=== PATIENT | female | born 1985 | race Caucasian/White ===

== ENCOUNTER 2016-11-02 17:25 | Emergency (ER) | payer SELFPAY ==
[2016-11-02 18:07] VITALS: BP 111/59
--- NOTE | 2016-11-02 19:15 | UC ---
Respiratory Complaint HPI - HPI Summary HPI Summary: This is an otherwise healthy 31 yo female who presents with a 3d h/o cough, chills, ST, body aches and nausea without vomiting or diarrhea. Her children have been sick with the flu recently. She denies SOB. No documented fevers. No abdominal pain. - History of Current Complaint Chief Complaint: UCGeneralIllness Stated Complaint: COUGH Hx Last Menstrual Period: CURRENT - Allergies/Home Medications Allergies/Adverse Reactions: Allergies Allergy/AdvReac Type Severity Reaction Status Date / Time Tramadol Allergy See Comment Verified 11/02/16 18:07 Home Medications: Home Medications Acetaminophen [Extra Strength Acetaminop] 500 mg PO ONCE PRN 11/02/16 [History Confirmed 11/02/16] PMH/Surg Hx/FS Hx/Imm Hx Previously Healthy: Yes Endocrine History Of: Denies: Diabetes, Thyroid Disease Cardiovascular History Of: Denies: Cardiac Disorders, Hypertension Respiratory History Of: Denies: COPD, Asthma GI/ History Of: Denies: Ulcer - Surgical History Surgical History: Yes Surgery Procedure, Year, and Place: Right Inguinal Hernia Repair, 2003, [facility]. Tubal Ligation, 2008, [facility]. , 2005 2006 2008, [facility]. appy - Family History Known Family History: Positive: Hypertension, Respiratory Disease - asthma - Social History Alcohol Use: Rare Substance Use Type: None Smoking Status (MU): Never Smoked Tobacco Review of Systems Constitutional: Chills, Fatigue Skin: Negative Eyes: Negative ENT: Sore Throat Respiratory: Shortness Of Breath, Cough Cardiovascular: Negative Gastrointestinal: Diarrhea Genitourinary: Negative Motor: Negative Neurovascular: Negative Musculoskeletal: Negative Neurological: Negative Psychological: Negative All Other Systems Reviewed And Are Negative: Yes Physical Exam Triage Information Reviewed: Yes Appearance: Ill-Appearing - mildly Vital Signs: Initial Vital Signs Temp 97.6 F 11/02/16 18:01 Pulse 65 11/02/16 18:01 Resp 16 11/02/16 18:01 BP 111/59 11/02/16 18:01 Pulse Ox 100 11/02/16 18:01 Vital Signs Reviewed: Yes ENT: Positive: TM dull. Negative: Nasal congestion, Tonsillar swelling, Tonsillar exudate Neck: Positive: Supple, Nontender, No Lymphadenopathy Respiratory: Positive: Lungs clear, Normal breath sounds. Negative: Crackles, Rhonchi, Wheezing Cardiovascular: Positive: RRR, Pulses Normal Abdomen Description: Positive: Nontender, Soft Bowel Sounds: Positive: Present Skin Exam: Normal UC Diagnostic Evaluation - Laboratory O2 Sat by Pulse Oximetry: 100 Respiratory Course/Dx - Course Course Of Treatment: Patient has a 3d h/o cough, chills, ST and body aches. Her children were recently sick with the flu. She is outside the treatment window for Tamiflu so influenza testing was not completed. Recommend symptomatic treatment - Differential Dx/Diagnosis Differential Diagnosis/HQI/PQRI: Bronchitis, Influenza, Laryngitis Provider Diagnoses: Acute viral respiratory infection - suspect influenza Discharge - Discharge Plan Condition: Stable Disposition: HOME Patient Education Materials: Influenza (ED) Forms: *Work Release Referrals: Cheri VASQUEZ,Mar [Physician Locomotive Crane Engineer] - Additional Instructions: Activity: As tolerated Instructions: 1. Use sudafed during the day for congestion relief 2. Use benadryl at night for congestion
== END 2016-11-02 19:20 | disposition home or self-care (01) ==
LOC: UCCORT 17:25
DX: J06.9 Acute upper respiratory infection, unspecified (principal); Z88.5 Allergy status to narcotic agent
CPT/HCPCS: 99211; G0463

== ENCOUNTER 2017-08-22 17:17 | Emergency (ER) | payer OTHER ==
[2017-08-22 17:33] VITALS: BP 118/65
--- NOTE | 2017-08-22 17:47 | UC ---
Back Pain HPI - HPI Summary HPI Summary: 32 YEAR OLD MALE PRESENTS WITH COMPLAINS OF BACK PAIN AFTER FALLING ON ICE. - History of Current Complaint Chief Complaint: UCBackPain Stated Complaint: TAIL BONE PAIN-SP FALL Time Seen by Provider: 08/22/17 17:46 Hx Obtained From: Patient Hx Last Menstrual Period: pt states having an ablasion and not getting a menses Onset/Duration: Sudden Onset, Lasting Hours Timing: Constant Severity Initially: Moderate Severity Currently: Moderate Pain Scale Used: 0-10 Numeric - 5 Character: Sharp Aggravating Factor(s): Movement, Lifting, Bending Alleviating Factor(s): Rest - Allergies/Home Medications Allergies/Adverse Reactions: Allergies Allergy/AdvReac Type Severity Reaction Status Date / Time Tramadol AdvReac See Comment Verified 08/22/17 17:33 Home Medications: Home Medications Ibuprofen [Ibuprofen 200] 400 mg PO PRN 08/22/17 [History] PMH/Surg Hx/FS Hx/Imm Hx Previously Healthy: Yes - Surgical History Surgical History: Yes Surgery Procedure, Year, and Place: Right Inguinal Hernia Repair, 2003, [facility]. Tubal Ligation, 2008, [facility]. , 2005 2006 2008, [facility]. appy - Family History Known Family History: Positive: Hypertension, Respiratory Disease - asthma - Social History Alcohol Use: Rare Substance Use Type: None Smoking Status (MU): Never Smoked Tobacco Review of Systems Constitutional: Negative Skin: Negative Eyes: Negative ENT: Negative Respiratory: Negative Cardiovascular: Negative Gastrointestinal: Negative Genitourinary: Negative Motor: Negative Neurovascular: Negative Musculoskeletal: Other: - LOWER BACK PAIN Neurological: Negative Psychological: Negative All Other Systems Reviewed And Are Negative: Yes Physical Exam Triage Information Reviewed: Yes Vital Signs: Initial Vital Signs Temp 36.6 C 08/22/17 17:29 Pulse 75 08/22/17 17:29 Resp 14 08/22/17 17:29 BP 118/65 08/22/17 17:29 Pulse Ox 100 08/22/17 17:29 Vital Signs Reviewed: Yes Eye Exam: Normal ENT Exam: Normal Dental Exam: Normal Neck exam: Normal Neck: Positive: 1 Respiratory Exam: Normal Cardiovascular Exam: Normal Abdominal Exam: Normal Musculoskeletal: Positive: Other: - LOWER BACK PAIN Neurological Exam: Normal Psychological Exam: Normal Skin Exam: Normal Back Pain Course/Dx - Differential Dx/Diagnosis Provider Diagnoses: COCCYX PAIN. LOWER BACK PAIN. MID BACK PAIN Discharge - Discharge Plan Condition: Stable Disposition: HOME Prescriptions: Meloxicam [Mobic] 7.5 mg PO BID #30 tab Methocarbamol TAB* [Robaxin 500 MG TAB*] 500 mg PO TID PRN #30 tab PRN Reason: Spasms - Back Patient Education Materials: Coccyx Injury (ED), Acute Low Back Pain (ED) Referrals: Reza Lane MD [Medical Doctor] - Timothy Sanchez [Physical Therapist] - Amanda Caba [Primary Care Provider] -
--- NOTE | 2017-08-22 18:49 | RAD ---
INDICATION: Pain COMPARISON: CT May 16, 2011 TECHNIQUE: 2 views of the sacrum were obtained FINDINGS: There are no acute bony findings. There is minor offset lower coccygeal segments similar to 2011 CT exam. The SI joints and symphysis are intact IMPRESSION: NO ACUTE BONY FINDINGS.
--- NOTE | 2017-08-22 18:49 | RAD ---
INDICATION: Back pain COMPARISON: None TECHNIQUE: Routine 2 view imaging was performed FINDINGS: Bones: There are no acute bony findings. There are no significant osteoarthritic findings. Alignment: There is a mild scoliotic deformity with convexity of the lumbar spine to the right and thoracolumbar junction to the left. There is no other abnormality in alignment. Disc spaces: The disc spaces are well-maintained Soft tissues: There are no soft tissue abnormalities. IMPRESSION: MILD SCOLIOTIC DEFORMITY.
== END 2017-08-22 19:02 | disposition home or self-care (01) ==
LOC: UCCORT 17:17
DX: M53.3 Sacrococcygeal disorders, not elsewhere classified (principal); M54.5 Low back pain; M54.6 Pain in thoracic spine; M41.9 Scoliosis, unspecified; Z88.5 Allergy status to narcotic agent
CPT/HCPCS: 72080; 72220; 99212; G0463

== ENCOUNTER 2019-01-03 16:09 | Emergency (ER) | payer OTHER ==
--- OUTSIDE RECORDS SUMMARY | 2019-01-03 16:37 | XMS REPORT | Continuity of Care Document ---
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 Payers Date Identification Numbers Payment Provider Subscriber Effective: 2016 Policy Number: [id number] [facility] Vickie Jaimes Group Name: [facility]# [id number] [address] PayID: [id number] [place] [address] Advance Directives Description No Information Available Problems Active Problems Provider Date Neck pain Digiovanna, Amanda, MACHINE FUR CLEANER Onset: 07/12/2018 Low back pain Digiovanna, Amanda, MACHINE FUR CLEANER Onset: 07/12/2018 Allergic rhinitis Digiovanna, Amanda, MACHINE FUR CLEANER Onset: 07/12/2018 Family History Date Family Member(s) Observation Comments General Cancer, Bone PGF General Hodgkin's Disease P uncle General Cancer, Breast PGM, diagnosed in her 60s Father Diabetes, Adult Father Hypertension First Son Asthma First Son Epilepsy First Son Allergies First Daughter Allergies Second Daughter Allergies Social History Type Date Description Comments Sex Unknown Education Highest level completed, 12th grade Occupation [employer] Mother ETOH Use Rarely consumes beer Tobacco Use Start: Unknown Patient has never smoked Recreational Drug Use Denies Drug Use Smoking Status Reviewed: 12/06/18 Patient has never smoked Allergies, Adverse Reactions, Alerts Active Allergies Reaction Severity Comments Date Tramadol GI UPSET/ RACING HEART 05/31/2016 Azithromycin Hives at time of illness could 12/06/2018 be viral Medications Active Medications SIG Qnty Indications Ordering Date Provider Flovent HFA 2 inhalation twice 12gm J45.40 [place], 12/06/2018 110mcg/Act daily rinse with MD Jazmin Aerosol mouth after. Prednisone 4 tablets by mouth 21tabs J20.9 Ron Santoro, 12/05/2018 10mg Tablets x 2 days, then 3 DO tablets x 2 days, then 2 tablets x 2 days, then 1 tablet until finished Acetaminophen 1-2 by mouth every 100tabs Digiovanna, 04/24/2018 500mg 4 hours as needed Amanda, MACHINE FUR CLEANER Tablets for pain Naproxen 1 tablet by mouth 30tabs N64.4 SantoroRon, 04/04/2018 500mg Tablets twice daily with DO food Ibuprofen take 1 tablet by 120tabs S30.0xxA Digiovanna, 09/03/2017 600mg Tablets mouth 3 times Amanda, MACHINE FUR CLEANER daily as needed with food for complaintof neck pain Omeprazole 1 by mouth every 30caps R07.89 Digiovanna, 04/27/2017 20mg day unitl 1 week Amanda, MACHINE FUR CLEANER Capsules DR after completion of prednisone, then as needed. R12 Metronidazole 1 by mouth twice a day Unknown 500mg Tablets Albuterol Sulfate HFA 2 puffs every 4 hours as J45.40 Unknown 108(90Base) mcg/Act needed Aerosol History Medications Azithromycin 2 tablets by mouth 6tabs J20.9 YvanValorieew, 12/05/2018 - 250mg on day 1 then 1 DO 12/06/2018 Tablets tablet on days 2-5 Benzonatate 1 by mouth every 8 60caps J06.9 Digiovanna, 09/17/2018 - 200mg hours as needed Amanda, MACHINE FUR CLEANER 12/05/2018 Capsules for cough, may cause drowsiness Nitrofurantoin 1 by mouth twice a 14caps R30.0 Ron Santoro, 08/14/2018 - Monohyd Macro day x 7 days DO 08/21/2018 100mg Capsules Nitrofurantoin 1 by mouth twice a 14caps N39.0 Digiovanna, 07/12/2018 - Monohyd Macro day for 7 days Amanda, MACHINE FUR CLEANER 07/19/2018 100mg Capsules Gabapentin take one capsules 30caps M54.2 Digiovanna, 05/01/2018 - 100mg by mouth at Amanda, MACHINE FUR CLEANER 07/12/2018 Capsules bedtime, may increase to 2 after 3 days if no improvement Nabumetone 1 by mouth twice a 60tabs M54.5 Digiovanna, 11/06/2017 - 750mg day Amanda, MACHINE FUR CLEANER 05/01/2018 Tablets Benzonatate 1 by mouth every 8 30caps J06.9 Digiovanna, 06/13/2017 - 200mg hours as needed Amanda, MACHINE FUR CLEANER 09/03/2017 Capsules for cough, may cause drowsiness Prednisone 2x/day by mouth 6tabs J06.9 Digiovanna, 06/13/2017 - 20mg Tablets for 3 days Amanda, MACHINE FUR CLEANER 06/16/2017 Ondansetron 1 every 8 hours as 10tabs R07.89 Digiovanna, 04/27/2017 - 4mg Tablets needed for nausea Amanda, MACHINE FUR CLEANER 05/17/2017 Dispers Naproxen Sodium 1 by mouth every 60tabs Digiovanna, 04/27/2017 - 550mg 12 hours for 2 Amanda, MACHINE FUR CLEANER 05/09/2017 Tablets weeks then as needed Ibuprofen 3-4 tabs by mouth Unknown - 200mg three times a day 09/03/2017 Capsules as needed with food or snack for pain Prednisone as directed x 12 Unknown - 10mg Tablets days 05/13/2017 Doxycycline Hyclate 1 by mouth twice a Unknown - day 12/05/2018 100mg Capsules Immunizations CPT Code Status Date Vaccine Reaction Lot # [id number] Refused 07/12/2018 Flu Vaccine NOS Pt says she does not get flu shots. CASA MEYER 07/12/18 [id number] Refused 09/03/2017 Influenza Vac, Quadrivalent, Split, 0.5mL Dosage, Im Use Vital Signs Date Vital Result Comment 12/06/2018 10:09am Body Temperature 98.7 F Weight 205.00 lb Heart Rate 78 /min BP Systolic 122 mmHg BP Diastolic 78 mmHg Respiratory Rate 18 /min Height 64.75 inches 5'4.75" 07/12/18 CASA MEYER BMI (Body Mass Index) 34.4 kg/m2 12/05/2018 1:01pm Body Temperature 99.1 F Weight 206.00 lb Heart Rate 78 /min BP Systolic 124 mmHg BP Diastolic 78 mmHg Respiratory Rate 18 /min Height 64.75 inches 5'4.75" 07/12/18 SA,THERMOMETER MAKER O2 % BldC Oximetry 99 % BMI (Body Mass Index) 34.5 kg/m2 09/17/2018 9:45am Body Temperature 98.3 F Weight 209.00 lb Heart Rate 90 /min Respiratory Rate 18 /min Height 64.75 inches 5'4.75" 07/12/18 SA,THERMOMETER MAKER O2 % BldC Oximetry 98 % BMI (Body Mass Index) 35.0 kg/m2 08/14/2018 9:51am Body Temperature 98.2 F Weight 203.00 lb Heart Rate 72 /min BP Systolic 112 mmHg BP Diastolic 70 mmHg Respiratory Rate 18 /min Height 64.75 inches 5'4.75" 07/12/18 SA,THERMOMETER MAKER BMI (Body Mass Index) 34.0 kg/m2 07/12/2018 9:57am Weight 179.25 lb Heart Rate 76 /min BP Systolic 114 mmHg BP Diastolic 70 mmHg Respiratory Rate 16 /min Height 64.75 inches 5'4.75" 07/12/18 SA,THERMOMETER MAKER BMI (Body Mass Index) 30.1 kg/m2 05/01/2018 12:56pm Weight 212.12 lb Heart Rate 84 /min BP Systolic 116 mmHg BP Diastolic 74 mmHg Respiratory Rate 16 /min Height 64.5 inches 5'4.50" BMI (Body Mass Index) 35.8 kg/m2 04/04/2018 11:35am Weight 204.00 lb Heart Rate 72 /min BP Systolic 120 mmHg BP Diastolic 70 mmHg Respiratory Rate 18 /min Height 64.5 inches 5'4.50" BMI (Body Mass Index) 34.5 kg/m2 11/06/2017 11:23am Weight 197.00 lb Heart Rate 84 /min BP Systolic 130 mmHg BP Diastolic 78 mmHg Respiratory Rate 16 /min Height 64.5 inches 5'4.50" BMI (Body Mass Index) 33.3 kg/m2 09/03/2017 11:16am Weight 198.00 lb Heart Rate 68 /min BP Systolic 114 mmHg BP Diastolic 68 mmHg Respiratory Rate 18 /min 06/13/2017 1:31pm Body Temperature 97.3 F Weight 194.00 lb Heart Rate 85 /min BP Systolic 108 mmHg BP Diastolic 64 mmHg Respiratory Rate 14 /min Height 64.5 inches 5'4.50" 05/31/16 O2 % BldC Oximetry 98 % BMI (Body Mass Index) 32.8 kg/m2 06/01/2017 10:59am Body Temperature 98.9 F Weight 196.00 lb Heart Rate 76 /min BP Systolic 108 mmHg BP Diastolic 60 mmHg Respiratory Rate 18 /min Height 64.5 inches 5'4.50" 05/31/16 BMI (Body Mass Index) 33.1 kg/m2 04/27/2017 10:03am Body Temperature 97.7 F Weight 194.00 lb Heart Rate 72 /min Respiratory Rate 18 /min Height 64.5 inches 5'4.50" 05/31/16 BMI (Body Mass Index) 32.8 kg/m2 10/30/2016 2:30pm Body Temperature 97.6 F Weight 178.00 lb Heart Rate 72 /min BP Systolic 110 mmHg BP Diastolic 70 mmHg Respiratory Rate 18 /min Height 64.5 inches 5'4.50" 05/31/16 BMI (Body Mass Index) 30.1 kg/m2 05/31/2016 1:51pm Weight 173.00 lb Heart Rate 72 /min BP Systolic 124 mmHg BP Diastolic 74 mmHg Respiratory Rate 16 /min Height 64.5 inches 5'4.50" 05/31/16 BMI (Body Mass Index) 29.2 kg/m2 Results Test Date Facility Test Result H/L Range Note Laboratory 09/22/19 [facility] Rapid Strep A Negative Negative 1, 2 test finding 19 (315)- - Antigen Laboratory 09/22/19 [facility] Throat Strep NO BETA STREPTOC 3 test finding 19 (315)- - Screen <SEE NOTE> Laboratory 08/14/19 [facility] Urine Culture Microbiology res 4 test finding 19 <SEE NOTE> Affirm 08/14/19 [facility] Trichomonas Negative Negative 19 Vaginalis Gardnerella Vaginalis Negative Negative Meggan Species Negative Negative Laboratory test 07/12/2018 [facility] Urine Culture Microbiology res 5 finding <SEE NOTE> Ua RFX Micro & 07/07/2018 [facility] Urine Color YELLOW Yellow 6 Culture II (315)- - Urine Clarity CLEAR Clear Urine Glucose - Dipstick NEGATIVE mg/dL Negative Urine Bilirubin - Dipstick NEGATIVE Negative Urine Ketone NEGATIVE mg/dL Negative Urine Specific Batchelor 1.025 N 1.010-1.030 Urine Blood NEGATIVE Negative Urine PH 6.0 Low 6.5-7.5 Urine Protein - Dipstick NEGATIVE mg/dL Negative Urine Urobilinogen - Dipstick 1.0 E.U./dL N 0.2-1.0 Urine Nitrite - Dipstick NEGATIVE Negative Urine Leuk Esterase NEGATIVE Negative Source: URINE, CLEAN CAT <SEE NOTE> 7 Urine HCG 07/07/2018 [facility] Urine HCG NEGATIVE Negative 8 (Qualitative) (315)- - (Qualitative) Source: URINE, CLEAN CAT <SEE NOTE> 9 CBS W/Automated Diff 07/07/2018 [facility] White Blood 7.2 K/uL N 3.1-10.7 (315)- - Count Red Blood Count 4.56 M/uL N 3.90-5.40 Hemoglobin 13.9 gm/dL N 11.6-15.8 Hematocrit 41.6 % N 36.0-46.1 Mean Cell Volume 91.2 fl N 80.9-99.0 Mean Corpuscular HGB 30.5 pg N 25.9-32.7 Mean Corpuscular HGB Conc 33.4 g/dL N 30.8-34.3 Platelet Count 222 K/uL N 155-360 Red Cell Distri Width SD 41.9 fl N 3-47 Red Cell Distri Width %CV 12.9 % N 11.7-14.4 Mean Platelet Volume 9.8 fL N 8.9-12.4 Neut% 67.5 % N 40.4-72.8 Lymph % 24.4 % N 20.0-42.0 Sevier % 6.3 % N 4.3-13.2 Eo% 1.5 % N 0.0-6.6 Bas% 0.3 % N 0.0-1.1 Neut# 4.83 K/uL N 1.8-7.0 Lymph # 1.75 K/uL N 1.0-4.0 Sevier # 0.45 K/uL N 0.3-0.9 Eos # 0.11 K/uL N 0.0-0.5 Baso # 0.02 K/uL N 0.0-0.1 Chlmaydia/GC/Trichomonas 07/07/2018 [facility] Chlamydia NEGATIVE Negative PCR (315)- - trachomatis, PCR Neisseria gonorrhoeae, PCR NEGATIVE Negative 10 Trichomonas vaginalis PCR NEGATIVE Negative Affirm Vaginitis 07/07/2018 [facility] Trichomonas Negative [Negative] Panel (315)- - vaginalis Gardnerella vaginalis POSITIVE High [Negative] Meggan species Negative [Negative] 11 Laboratory test 04/04/2018 [facility] Urine Culture Microbiology res 12 finding <SEE NOTE> CBC with Auto 04/04/2018 [facility] WBC 6.3 K/uL 4.1-11.0 Diff-fcmg RBC 4.89 M/uL 4.00-5.40 Hemoglobin 14.6 gm/dL 12.0-16.0 Hematocrit 43.8 % 36.0-47.0 MCV 89.7 fL 80.0-97.0 MCH 29.9 pg 27.0-32.0 MCHC 33.4 g/dL 32.0-36.0 RDW 13.0 % 11.5-14.5 PLT Count 211 K/ul 140-400 MPV 9.1 FL 7.1-10.7 Neutrophil 65.0 % 35.0-75.0 Lymphocyte 25.1 % 16.0-52.0 Monocyte 7.9 % 2.0-10.0 Eosinophil 1.0 % 0.0-5.0 Basophil 1.0 % 0.0-4.0 Abs Neutrophils 4.1 K/uL 2.1-8.0 Abs Lymphocytes 1.6 K/uL 0.8-5.5 Abs Monocytes 0.5 K/uL 0.1-1.0 Abs Eosinophils 0.1 K/uL 0.0-0.5 Abs Basophils 0.1 K/uL 0.0-0.3 Comprehensive Met Panel-FCMG 04/04/2018 [facility] Sodium 140 mmol/L 135- 146 13 Potassium 4.4 mmol/L 3.5-5.2 Chloride# 105 mmol/L 97-110 14 Carbon Dioxide 25 mmol/L 24-34 Glucose 85 mg/dL 70-105 BUN 10 mg/dL 6-26 Creatinine 0.6 mg/dL 0.5-1.4 Calcium 9.4 mg/dL 8.5-10.2 Total Protein 7.3 g/dL 6.0-8.0 Albumin 4.4 g/dL 3.6-4.9 Globulin 2.9 g/dL 2.0-3.5 A/G Ratio 1.5 Ratio 1.0-2.2 Total Bilirubin 0.3 mg/dL 0.1-1.3 Alkaline Phosphatase 65 U/L 24-140 Alt 11 U/L 3-42 Ast 14 U/L 8-42 Kori Egfr >60 >60 15 Non Kori Egfr >60 >60 16 Anion Gap 10 mmol/L 5-15 17 Urinalysis With 05/10/2017 [facility] Urine Color YELLOW Yellow 18 Microscopic (315)- - Urine Clarity CLEAR Clear Urine Glucose - Dipstick NEGATIVE mg/dL Negative Urine Bilirubin - Dipstick NEGATIVE Negative Urine Ketone NEGATIVE mg/dL Negative Urine Specific [place] 1.010 N 1.010-1.030 Urine Blood NEGATIVE Negative Urine PH 7.0 N 6.5-7.5 Urine Protein - Dipstick NEGATIVE mg/dL Negative Urine Urobilinogen - Dipstick 0.2 E.U./dL N 0.2-1.0 Urine Nitrite - Dipstick NEGATIVE Negative Urine Leuk Esterase SMALL Abnormal Negative Urine RBC NONE SEEN rbc/hpf 0-2 Urine WBC 0-2 wbc/hpf 0-7 Urine Epithelial Cells FEW /lpf None Seen Urine Amorph Sediment SMALL Negative Source: URINE, CLEAN CAT <SEE NOTE> 19 Comprehensive Metabolic 04/25/2017 [facility] Glucose 90 mg/dL N 74-106 20 Panel (315)- - BUN 9 mg/dL N 7-18 Creatinine 0.6 mg/dL N 0.6-1.3 Glom Filtration Rate, Estimate >60 mL/min >60 If >60 mL/min >60 21 BUN/Creat 15.0 ratio Sodium 139 mmol/L N 136-145 Potassium 3.8 mmol/L N 3.5-5.1 Chloride 106 mmol/L N 98-107 Carbon Dioxide 25 mmol/L N 21-32 Anion Gap 8 mEq/L N 8-16 Calcium 9.0 mg/dL N 8.5-10.1 Total Protein 8.3 g/dL High 6.4-8.2 Albumin 3.9 g/dL N 3.4-5.0 Globulin 4.4 g/dL High 1.9-4.3 Alb/Glob 0.9 ratio Bilirubin,Total 0.6 mg/dL N 0.2-1.0 Sgot/Ast 12 U/L Low 15-37 22 SGPT/Alt 22 U/L N 12-78 Alkaline Phosphatase 64 U/L N 45-117 Laboratory test finding 04/25/2017 [facility] CK 116 U/L N 26-192 (315)- - Troponin-I < 0.015 ng/mL 23 CBS W/Automated Diff 04/25/2017 [facility] White Blood 7.8 K/uL N 3.1-10.7 (315)- - Count Red Blood Count 4.77 M/uL N 3.90-5.40 Hemoglobin 14.8 gm/dL N 11.6-15.8 Hematocrit 42.7 % N 36.0-46.1 Mean Cell Volume 89.5 fl N 80.9-99.0 Mean Corpuscular HGB 31.0 pg N 25.9-32.7 Mean Corpuscular HGB Conc 34.7 g/dL High 30.8-34.3 Platelet Count 186 K/uL N 150-400 Red Cell Distri Width SD 40.9 fl N 3-47 Red Cell Distri Width %CV 12.6 % N 11.7-14.4 Mean Platelet Volume 10.0 fL N 8.9-12.4 Neut% 73.8 % High 40.4-72.8 Lymph % 19.3 % Low 20.0-42.0 Sevier % 6.1 % N 4.3-13.2 Eo% 0.5 % N 0.0-6.6 Bas% 0.3 % N 0.0-1.1 Neut# 5.78 K/uL N 1.8-7.0 Lymph # 1.51 K/uL N 1.0-4.0 Sevier # 0.48 K/uL N 0.3-0.9 Eos # 0.04 K/uL N 0.0-0.5 Baso # 0.02 K/uL N 0.0-0.1 Laboratory test 04/25/2017 [facility] D-Dimer, < 0.22 ug/ mL 24 finding (315)- - Quantitative Urine HCG 11/30/2016 [facility] Urine HCG NEGATIVE Negative 25, 26 (Qualitative) (315)- - (Qualitative) Source: URINE, CLEAN CAT <SEE NOTE> 27 Ua RFX Micro & 11/30/2016 [facility] Urine Color YELLOW Yellow Culture II (315)- - Urine Clarity SL CLOUDY Clear Urine Glucose - Dipstick NEGATIVE mg/dL Negative Urine Bilirubin - Dipstick NEGATIVE Negative Urine Ketone NEGATIVE mg/dL Negative Urine Specific Bat[place]lor 1.020 N 1.010-1.030 Urine Blood TRACE Negative Urine PH 6.5 N 6.5-7.5 Urine Protein - Dipstick NEGATIVE mg/dL Negative Urine Urobilinogen - Dipstick 0.2 E.U./dL N 0.2-1.0 Urine Nitrite - Dipstick NEGATIVE Negative Urine Leuk Esterase NEGATIVE Negative Source: URINE, CLEAN CAT <SEE NOTE> 28 CBS W/Automated Diff 11/30/2016 [facility] White Blood 9.0 K/uL 3.1-10.7 (315)- - Count Red Blood Count 4.28 M/uL N 3.90-5.40 Hemoglobin 13.3 gm/dL N 11.6-15.8 Hematocrit 39.5 % N 36.0-46.1 Mean Cell Volume 92.3 fl N 80.9-99.0 Mean Corpuscular HGB 31.1 pg N 25.9-32.7 Mean Corpuscular HGB Conc 33.7 g/dL N 30.8-34.3 Platelet Count 196 K/uL N 150-400 Red Cell Distri Width SD 42.6 fl N 3-47 Red Cell Distri Width %CV 12.9 % N 11.7-14.4 Mean Platelet Volume 10.4 fL N 8.9-12.4 Neut% 63.4 % N 40.4-72.8 Lymph % 27.9 % N 20.0-42.0 Sevier % 7.6 % N 4.3-13.2 Eo% 0.9 % N 0.0-6.6 Bas% 0.2 % N 0.0-1.1 Neut# 5.69 K/uL N 1.8-7.0 Lymph # 2.50 K/uL N 1.0-4.0 Sevier # 0.68 K/uL N 0.3-0.9 Eos # 0.08 K/uL N 0.0-0.5 Baso # 0.02 K/uL N 0.0-0.1 Comprehensive Metabolic 11/30/2016 [facility] Glucose 92 mg/dL N 74-106 Panel (315)- - BUN 13 mg/dL N 7-18 Creatinine 0.7 mg/dL N 0.6-1.3 Glom Filtration Rate, Estimate >60 mL/min >60 If >60 mL/min >60 29 BUN/Creat 18.5 ratio Sodium 142 mmol/L N 136-145 Potassium 3.6 mmol/L N 3.5-5.1 Chloride 104 mmol/L N 98-107 Carbon Dioxide 31 mmol/L N 21-32 Anion Gap 7 mEq/L Low 8-16 Calcium 8.7 mg/dL N 8.5-10.1 Total Protein 7.3 g/dL N 6.4-8.2 Albumin 3.6 g/dL N 3.4-5.0 Globulin 3.7 g/dL N 1.9-4.3 Alb/Glob 1.0 ratio Bilirubin,Total 0.3 mg/dL N 0.2-1.0 Sgot/Ast 12 U/L Low 15-37 30 SGPT/Alt 21 U/L N 12-78 Alkaline Phosphatase 53 U/L N 45-117 Laboratory test 11/30/2016 [facility] Lipase 156 U/L N 73-393 finding (315)- - CBC 11/24/2016 [facility] White Blood 5.3 K/uL N 3.1- 10.7 31 (315)- - Count Red Blood Count 4.39 M/uL N 3.90-5.40 Hemoglobin 13.6 gm/dL N 11.6-15.8 Hematocrit 40.5 % N 36.0-46.1 Mean Cell Volume 92.3 fl N 80.9-99.0 Mean Corpuscular HGB 31.0 pg N 25.9-32.7 Mean Corpuscular HGB Conc 33.6 g/dL N 30.8-34.3 Platelet Count 184 K/uL N 150-400 Red Cell Distri Width %CV 13.1 % N 11.7-14.4 Mean Platelet Volume 10.4 fL N 8.9-12.4 Urinalysis With 11/24/2016 [facility] Urine Color YELLOW Yellow Microscopic (315)- - Urine Clarity CLEAR Clear Urine Glucose - Dipstick NEGATIVE mg/dL Negative Urine Bilirubin - Dipstick NEGATIVE Negative Urine Ketone NEGATIVE mg/dL Negative Urine Specific Batchelor 1.020 N 1.010-1.030 Urine Blood LARGE Abnormal Negative Urine PH 7.5 N 6.5-7.5 Urine Protein - Dipstick NEGATIVE mg/dL Negative Urine Urobilinogen - Dipstick 0.2 E.U./dL N 0.2-1.0 Urine Nitrite - Dipstick NEGATIVE Negative Urine Leuk Esterase NEGATIVE Negative Urine RBC 10-20 rbc/hpf High 0-2 Urine WBC 0-2 wbc/hpf 0-7 Urine Epithelial Cells MANY /lpf None Seen 32 Urine Bacteria FEW None Seen Source: URINE, CLEAN CAT <SEE NOTE> 33 CBC With Auto Diff 10/30/2016 [facility] WBC 6.1 K/uL 4.1-11.0 RBC 4.25 M/uL 4.00-5.40 Hemoglobin 13.1 gm/dL 12.0-16.0 Hematocrit 38.6 % 36.0-47.0 MCV 90.9 fL 80.0-97.0 MCH 30.7 pg 27.0-32.0 MCHC 33.8 g/dL 32.0-36.0 RDW 12.9 % 11.5-14.5 PLT Count 206 K/ul 140-400 Neutrophil 54.2 % 35.0-75.0 Lymphocyte 38.0 % 16.0-52.0 Monocyte 5.5 % 2.0-10.0 Eosinophil 1.9 % 0.0-5.0 Basophil 0.4 % 0.0-4.0 Abs Neutrophils 3.3 K/uL 2.1-8.0 Abs Lymphocytes 2.3 K/uL 0.8-5.5 Abs Monocytes 0.3 K/uL 0.1-1.0 Abs Eosinophils 0.1 K/uL 0.0-0.5 Abs Basophils 0.0 K/uL 0.0-0.3 Basic (BMP) 10/30/2016 [facility] Sodium 139 mmol/L 135-146 34 Potassium 4.4 mmol/L 3.5-5.2 Chloride# 105 mmol/L 97-110 35 Carbon Dioxide 30 mmol/L 24-34 Glucose 77 mg/dL 70-105 BUN 10 mg/dL 6-26 Creatinine 0.6 mg/dL 0.5-1.4 Calcium 9.0 mg/dL 8.5-10.2 Non Kori Egfr >60 >60 36 Kori Egfr >60 >60 37 Anion Gap 8 mmol/L 7-16 38 Comprehensive Metabolic 08/14/2016 [facility] Glucose 95 mg/dL N 74-106 39 Panel (315)- - BUN 9 mg/dL N 7-18 Creatinine 0.7 mg/dL N 0.6-1.3 Glom Filtration Rate, Estimate >60 mL/min N >60 If >60 mL/min N >60 40 BUN/Creat 12.8 ratio N Sodium 139 mmol/L N 136-145 Potassium 3.9 mmol/L N 3.5-5.1 Chloride 105 mmol/L N 98-107 Carbon Dioxide 26 mmol/L N 21-32 Anion Gap 8 mEq/L N 8-16 Calcium 8.8 mg/dL N 8.5-10.1 Total Protein 7.9 g/dL N 6.4-8.2 Albumin 3.9 g/dL N 3.4-5.0 Globulin 4.0 g/dL N 1.9-4.3 Alb/Glob 1.0 ratio N Bilirubin,Total 0.5 mg/dL N 0.2-1.0 Sgot/Ast 10 U/L Low 15-37 41 SGPT/Alt 17 U/L N 12-78 Alkaline Phosphatase 58 U/L N 45-117 Laboratory test 08/14/2016 [facility] Lipase 144 U/L N 73-393 finding (315)- - Laboratory test 08/14/2016 [facility] HCG,Serum NEGATIVE N (Negative) finding (315)- - (Qualitative) CBS W/Automated 08/14/2016 [facility] White Blood 7.4 K/ uL N 3.1-10.7 Diff (315)- - Count Red Blood Count 4.74 M/uL N 3.90-5.40 Hemoglobin 14.4 gm/dL N 11.6-15.8 Hematocrit 43.6 % N 36.0-46.1 Mean Cell Volume 92.0 fl N 80.9-99.0 Mean Corpuscular HGB 30.4 pg N 25.9-32.7 Mean Corpuscular HGB Conc 33.0 g/dL N 30.8-34.3 Platelet Count 219 K/uL N 155-360 Red Cell Distri Width SD 42.5 fl N 3-47 Red Cell Distri Width %CV 13.0 % N 11.7-14.4 Mean Platelet Volume 10.2 fL N 8.9-12.4 Neut% 70.9 % N 40.4-72.8 Lymph % 22.7 % N 17.0-46.1 Sevier % 5.4 % N 4.3-13.2 Eo% 0.7 % N 0.0-6.6 Bas% 0.3 % N 0.0-1.1 Neut# 5.27 K/uL N 1.8-7.0 Lymph # 1.69 K/uL Low 1.8-7.0 Sevier # 0.40 K/uL N 0.3-0.9 Eos # 0.05 K/uL N 0.0-0.5 Baso # 0.02 K/uL N 0.0-0.1 Urinalysis With 08/14/2016 [facility] Urine Color YELLOW N Yellow Microscopic (315)- - Urine Clarity SL CLOUDY N Clear Urine Glucose - Dipstick NEGATIVE mg/dL N Negative Urine Bilirubin - Dipstick NEGATIVE N Negative Urine Ketone TRACE mg/dL High Negative Urine Specific Batchelor 1.025 N 1.010-1.030 Urine Blood SMALL Abnormal Negative Urine PH 6.0 Low 6.5-7.5 Urine Protein - Dipstick NEGATIVE mg/dL N Negative Urine Urobilinogen - Dipstick 0.2 E.U./dL N 0.2-1.0 Urine Nitrite - Dipstick NEGATIVE N Negative Urine Leuk Esterase NEGATIVE N Negative Urine RBC 0-2 rbc/hpf N 0-2 Urine WBC 2-5 wbc/hpf N 0-7 Urine Epithelial Cells MODERATE /lpf N None Seen 42 Urine Mucus SMALL N None Seen Source: URINE, CLEAN CAT <SEE NOTE> 43 Chlamydia/GC Luisa 08/14/2016 [facility] Chlamydia POSITIVE Abnormal Negative (315)- - Trachomatis, Luisa Neisseria Gonorrhoeae, Luisa Negative N Negative Please note: (SEE NOTE) N 44 Laboratory test finding 05/31/2016 [facility] Hemoglobin A1c 5.2 % 4.1-5.9 TSH 1.45 uIU/mL 0.35-4.94 Vit D,25 Hydroxy 30 ng/mL Low 31-100 Lipid 05/31/2016 [facility] Cholesterol 165 mg/dL 50-199 Triglycerides 55 mg/dL 30-200 HDL 70 mg/dL 35-85 45 Chol/ HDL Ratio 2.4 ratio Low 3.7-5.6 VLDL 11 mg/dL 2-29 LDL (Calc) 84 mg/dL 20-99 46 Comprehensive Metabolic (CMP) 05/31/2016 [facility] Sodium 137 mmol/L 134- 142 Potassium 3.8 mmol/L 3.5-5.2 Chloride 104 mmol/L 97-109 Carbon Dioxide 27 mmol/L 24-34 Glucose 102 mg/dL 70-105 BUN 14 mg/dL 6-26 Creatinine 0.7 mg/dL 0.5-1.4 Calcium 10.0 mg/dL 8.5-10.2 Total Protein 7.3 g/dL 6.0-8.0 Albumin 4.4 g/dL 3.6-4.9 Globulin 2.9 g/dL 2.0-3.5 A/G Ratio 1.5 Ratio 1.0-2.2 Total Bilirubin 0.3 mg/dL 0.1-1.3 Alkaline Phosphatase 49 U/L 24-140 Alt 11 U/L 3-42 Ast 12 U/L 8-42 Anion Gap 10 mmol/L 6-14 Kori Egfr >60 >60 47 Non Kori Egfr >60 >60 48 CBC With Auto Diff 05/31/2016 Micheal WBC 9.5 K/uL 4.1-11.0 RBC 4.66 M/uL 4.00-5.40 Hemoglobin 14.5 gm/dL 12.0-16.0 Hematocrit 42.5 % 36.0-47.0 MCV 91.1 fL 80.0-97.0 MCH 31.1 pg 27.0-32.0 MCHC 34.1 g/dL 32.0-36.0 RDW 13.2 % 11.5-14.5 PLT Count 224 K/ul 140-400 Neutrophil 70.0 % 35.0-75.0 Lymphocyte 24.5 % 16.0-52.0 Monocyte 4.1 % 2.0-10.0 Eosinophil 0.9 % 0.0-5.0 Basophil 0.5 % 0.0-4.0 Abs Neutrophils 6.7 K/uL 2.1-8.0 Abs Lymphocytes 2.3 K/uL 0.8-5.5 Abs Monocytes 0.4 K/uL 0.1-1.0 Abs Eosinophils 0.1 K/uL 0.0-0.5 Abs Basophils 0.0 K/uL 0.0-0.3 1 COUGH, RUNNY NOSE, BODY ACHE, FEVER 2 Infection due to Strep A cannot be ruled-out because the antigen present in the sample may be below the detection limit of the test. Culture confirmation of negative result is in progress Method: BD Veritor Chromatographic immunoassay 3 NO BETA STREPTOCOCCI ISOLATED 4 Microbiology results SOURCE Random urine FINAL RESULT <10,000 CFU/ML Urethral audi consistent with contamination. No further workup. 5 Microbiology results SOURCE Clean Catch Midstream COLONY COUNT 30,000 CFU/ML FINAL RESULT Mixed organisms representing urethral audi. No further workup. 6 POSSIBLE YEAST INFECTION 7 URINE, CLEAN CATCH 8 FIRST MORNING SPECIMENS GENERALLY CONTAIN THE HIGHEST CONCENTRATION OF HCG AND ARE RECOMMENDED FOR EARLY DETECTION OF . Method: Quidel QuickVue One-Step Immunoassay 9 URINE, CLEAN CATCH 10 A negative result for either C. trachomatis and/or N. gonorrhoeae does not preclued an infection because results are dependent on adequate specimen collection, absence of inhibitors, and sufficient DNA to be detected. 11 Method: BD Affirm VPIII DNA Probe Assay 12 Microbiology results SOURCE Random urine FINAL RESULT No growth 13 Updated reference range on new analyzer 14 Updated reference range on new analyzer 15 Concerning GFR Guidelines for Americans: Normal function or mild renal disease, if clinically at risk: >/=60 mL/min Moderately decreased: 30-59 Severely decreased: 15-29 Renal failure: <15 16 Concerning GFR Guidelines: Normal function or mild renal disease, if clinically at risk: >/=60 mL/min Moderately decreased: 30-59 Severely decreased: 15-29 Renal failure: <15 Glomerular Filtration Rate (GFR) is estimated based on the MDRD equation, which assumes a steady state for creatinine as recommended by the [employer] Disease Education Program in conjunction with the National Institutes of Health and the National Kidney Foundation. Clinical conditions in which it may be necessary to measure GFR by using clearance methods include extremes of age and body size, severe malnutrition or obesity, diseases of skeletal muscle, paraplegia or quadriplegia, vegetarian diet, rapidly changing kidney function, and calculation of the dose of potentially toxic drugs that are excreted by the kidneys. 17 Updated Reference Range 18 LOWER BACK PAIN 19 URINE, CLEAN CATCH 20 CHEST PAIN 21 Note: Persistent reduction for 3 months or more in an eGFR <60 mL/min/1.73 m2 defines CKD. Patients with eGFR values >/=60 mL/min/1.73 m2 may also have CKD if evidence of persistent proteinuria is present. The original MDRD equation for estimated GFR is not valid for patients less than 18 years of age. Additional information may be found at www.kdoqi.org. 22 Values below the stated reference ranges of AST and ALT can be seen in normal populations. Clinical correlation is suggested. 23 0.0 - 0.045 ng/mL: Normal 0.046 - 0.5 ng/mL: Suggestive 0.6 - 1.5 ng/mL: Consistent 24 <=0.49 ug/mL - Low likelihood of DIC, DVT or Pulmonary Embolism >0.49 ug/mL - Additional testing should be done to rule out DIC, DVT, or Pulmonary embolism as clinically indicated. ([facility] has established a 97.89% negative predictive value for thrombotic disease when a cutoff value of 0.5 ug/mL is used.) 25 PT HAD ABLASION 11/24/16 HAVING PAIN; VOMITING 26 FIRST MORNING SPECIMENS GENERALLY CONTAIN THE HIGHEST CONCENTRATION OF HCG AND ARE RECOMMENDED FOR EARLY DETECTION OF . Method: Quidel QuickVue One-Step Immunoassay 27 URINE, CLEAN CATCH 28 URINE, CLEAN CATCH 29 Note: Persistent reduction for 3 months or more in an eGFR <60 mL/min/1.73 m2 defines CKD. Patients with eGFR values >/=60 mL/min/1.73 m2 may also have CKD if evidence of persistent proteinuria is present. The original MDRD equation for estimated GFR is not valid for patients less than 18 years of age. Additional information may be found at www.kdoqi.org. 30 Values below the stated reference ranges of AST and ALT can be seen in normal populations. Clinical correlation is suggested. 31 CONSULT 11/20 [id number] 32 POSSIBLE UROGENITAL CONTAMINATION. 33 URINE, CLEAN CATCH 34 Updated reference range on new analyzer 35 Updated reference range on new analyzer 36 Concerning GFR Guidelines: Normal function or mild renal disease, if clinically at risk: >/=60 mL/min Moderately decreased: 30-59 Severely decreased: 15-29 Renal failure: <15 Glomerular Filtration Rate (GFR) is estimated based on the MDRD equation, which assumes a steady state for creatinine as recommended by the National Kidney Disease Education Program in conjunction with the National Institutes of Health and the National Kidney Foundation. Clinical conditions in which it may be necessary to measure GFR by using clearance methods include extremes of age and body size, severe malnutrition or obesity, diseases of skeletal muscle, paraplegia or quadriplegia, vegetarian diet, rapidly changing kidney function, and calculation of the dose of potentially toxic drugs that are excreted by the kidneys. 37 Concerning GFR Guidelines for Americans: Normal function or mild renal disease, if clinically at risk: >/=60 mL/min Moderately decreased: 30-59 Severely decreased: 15-29 Renal failure: <15 38 Updated reference range on new analyzer 39 R SIDE ABD PAIN 40 Note: Persistent reduction for 3 months or more in an eGFR <60 mL/min/1.73 m2 defines CKD. Patients with eGFR values >/=60 mL/min/1.73 m2 may also have CKD if evidence of persistent proteinuria is present. The original MDRD equation for estimated GFR is not valid for patients less than 18 years of age. Additional information may be found at www.kdoqi.org. 41 Values below the stated reference ranges of AST and ALT can be seen in normal populations. Clinical correlation is suggested. 42 POSSIBLE UROGENITAL CONTAMINATION. 43 URINE, CLEAN CATCH 44 A negative result for either C. trachomatis and/or N. gonorrhoeae does not preclued an infection because results are dependent on adequate specimen collection, absence of inhibitors, and sufficient DNA to be detected. A negative result for either C. trachomatis and/or N. gonorrhoeae does not preclued an infection because results are dependent on adequate specimen collection, absence of inhibitors, and sufficient DNA to be detected. 45 Per NCEP ATP III Guidelines: Results lower than 40 mg/dL are suggestive of increased risk for coronary artery disease. Results > or=to 60 mg/dL are considered a negative risk factor. 46 Per NCEP ATP III Guidelines: Normal Population <130 Patients with medical conditions: CHD/DM Optimal: <100 Borderline high: 130-159 High: 160-189 Very high: >189 47 Concerning GFR Guidelines for Americans: Normal function or mild renal disease, if clinically at risk: >/=60 mL/min Moderately decreased: 30-59 Severely decreased: 15-29 Renal failure: <15 48 Concerning GFR Guidelines: Normal function or mild renal disease, if clinically at risk: >/=60 mL/min Moderately decreased: 30-59 Severely decreased: 15-29 Renal failure: <15 Glomerular Filtration Rate (GFR) is estimated based on the MDRD equation, which assumes a steady state for creatinine as recommended by the National Kidney Disease Education Program in conjunction with the National Institutes of Health and the National Kidney Foundation. Clinical conditions in which it may be necessary to measure GFR by using clearance methods include extremes of age and body size, severe malnutrition or obesity, diseases of skeletal muscle, paraplegia or quadriplegia, vegetarian diet, rapidly changing kidney function, and calculation of the dose of potentially toxic drugs that are excreted by the kidneys. Procedures Date Code Description Status 12/05/2018 59642 Measure Blood Oxygen Level Single Determination Completed 09/17/2018 73800 Measure Blood Oxygen Level Single Determination Completed 07/12/2018 90057 Brief Emotional/Behav Assessment W/ Scoring Doc Per Completed Standard Inst 04/11/2018 [id number] Mammogram Completed 06/13/2017 61828 Measure Blood Oxygen Level Single Determination Completed 11/09/2016 09875 Echography Transvaginal Completed Encounters Type Date Location Provider Dx Diagnosis Office Visit 09/17/2018 SOWMYA Caba, J06.9 Acute upper 9:45a MARIAMA Patel respiratory infection, unspecified Office Visit 08/14/2018 Kandi Chavez PA R30.0 Dysuria 10:00a N76.0 Acute vaginitis Z68.34 Body mass index (BMI) 34.0-34.9, adult Office Visit 07/12/2018 10:00a Amanda Trevizo Z00.00 Encntr for general [employer] adult medical exam w/o abnormal findings M54.2 Cervicalgia M54.5 Low back pain N39.0 Urinary tract infection, site not specified J30.9 Allergic rhinitis, unspecified Z13.31 Encounter for screening for depression Z68.30 Body mass index (BMI) 30.0-30.9, adult Office Visit 05/01/2018 1:00p Amanda Trevizo NP M54.2 Cervicalgia Office Visit 04/04/2018 11:30a Kandi Chavez PA N64.4 Mastodynia R82.2 Biliuria M54.5 Low back pain Z68.34 Body mass index (BMI) 34.0-34.9, adult Office Visit 11/06/2017 11:30a SOWMYA Caba T78.40xA Allergy, unspecified, Amanda [employer] initial encounter M54.5 Low back pain Office Visit 09/03/2017 11:30a [facility] Amanda Caba, S30.0xxA Contusion of lower [employer] back and pelvis, initial encounter Office Visit 06/13/2017 1:45p [facility] Amanda Caba, J06.9 Acute upper [employer] respiratory infection, unspecified Office Visit 06/01/2017 11:00a [facility] Amanda Caba, Z00.00 Encntr for general [employer] adult medical exam w/o abnormal findings R12 Heartburn Z68.33 Body mass index (BMI) 33.0-33.9, adult Office Visit 04/27/2017 9:45a [facility] Amanda Caba, R07.89 Other chest pain [employer] Office Visit 10/30/2016 2:30p [facility] Amanda Caba, N92.1 Excessive and frequent [employer] menstruation with irregular cycle Office Visit 05/31/2016 1:45p [facility] Amanda Caba, Z00.00 Encntr for general [employer] adult medical exam w/o abnormal findings Z68.29 Body mass index (BMI) 29.0-29.9, adult J06.9 Acute upper respiratory infection, unspecified R10.9 Unspecified abdominal pain Plan of Treatment Future Appointment(s):12/27/2018 11:30 am - Amanda Caba [employer] at [facility]07/14 10:00 am - Amanda Caba [employer] at [facility]12/06/2018 - Jazmin Robins MDL50.9 Urticaria, unspecifiedComments:Hives, could be due to antibiotics or due to a an enterovirus that causes hives with respiratory illness or due to allergies in general with spring pollen stop zmax. cautioned if sxs are severe may take benedryl, if has any throat closing severe sob then call 911Follow up: next visit in 3-4 weeks fu cough, asthma, hives; pfts pre and post on arrival.J20.9 Acute bronchitis, unspecifiedComments:bronchitisstop the zmax. secretions are clear, I'm concerned about furthe rissues with hives so holdon antibiotics, no colored secretions, no sinus infection symptoms, no fever. continue the prednison, will help with hives usually. use proventil as neededseek care if sxs are not improving, chest paindevelops, temp 100.5+, any new concernsFollow up:followup as [id number] Moderate persistent asthma, uncomplicatedNew Medication:Flovent HFA 110 mcg/Act - 2 inhalation twice daily rinse with mouth after.Comments:start steroid inhalersrecheck ov with pcp in 1 mo and do pfts pre and post on arrival.E66.9 Obesity, unspecifiedComments: continue to work on diet, exercise, weight lossZ68.34 Body mass index (BMI) 34.0 -34.9, adultComments:continue to work on reduced calorie diet and exercise for weight loss cautioned risks for sleep apnea, arthritis, diabetes, hypertension , premature cardiovascular disease.
--- OUTSIDE RECORDS SUMMARY | 2019-01-03 16:37 | XMS REPORT | Continuity of Care Document ---
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 Payers Date Identification Numbers Payment Provider Subscriber Effective: 2016 Policy Number: [id number] [facility] Vickie Jaimes Group Name: [facility]# [id number] [address] PayID: [id number] [place] [address] Advance Directives Description No Information Available Problems Active Problems Provider Date Neck pain Digiovanna, Amanda, FISHING ROD TRIMMER Onset: 07/12/2018 Low back pain Digiovanna, Amanda, FISHING ROD TRIMMER Onset: 07/12/2018 Allergic rhinitis Digiovanna, Amanda, FISHING ROD TRIMMER Onset: 07/12/2018 Family History Date Family Member(s) [...] Use Denies Drug Use Smoking Status Reviewed: 09/17/18 Patient has never smoked Allergies, Adverse Reactions, Alerts Active Allergies Reaction Severity Comments Date Tramadol GI UPSET/ RACING HEART 05/31/2016 Medications Active Medications SIG Qnty Indications Ordering Date Provider Azithromycin 2 tablets by mouth 6tabs J20.9 Santoro, Ron, 12/05/2018 250mg on day 1 then 1 DO Tablets tablet on days 2-5 Prednisone 4 tablets by mouth 21tabs J20.9 Ron Santoro, 12/05/2018 10mg Tablets x 2 days, then 3 DO tablets x 2 days, then 2 tablets x 2 days, then 1 tablet until finished Benzonatate 1 by mouth every 8 60caps J06.9 Digiovanna, 09/17/2018 200mg hours as needed Amanda, FISHING ROD TRIMMER Capsules for cough, may cause drowsiness Acetaminophen 1-2 by mouth every 100tabs Digiovanna, 04/24/2018 500mg 4 hours as needed Amanda, FISHING ROD TRIMMER Tablets for pain Naproxen 1 tablet by mouth 30tabs N64.4 YvanValorieew, 04/04/2018 500mg Tablets twice daily with DO food Ibuprofen take 1 tablet by 120tabs S30.0xxA Digiovanna, 09/03/2017 600mg Tablets mouth 3 times Amanda, FISHING ROD TRIMMER daily as needed with food for complaintof neck pain Omeprazole 1 by mouth every 30caps R07.89 Digiovanna, 04/27/2017 20mg day unitl 1 week Amanda, FISHING ROD TRIMMER Capsules DR after completion of prednisone, then as needed. R12 Doxycycline Hyclate 1 by mouth twice a day Unknown 100mg Capsules Metronidazole 500mg 1 by mouth twice a day Unknown Tablets History Medications Nitrofurantoin 1 by mouth twice a 14caps R30.0 Yvan Ron, 08/14/2018 - Monohyd Macro day x 7 days DO 08/21/2018 100mg Capsules Nitrofurantoin 1 by mouth twice a 14caps N39.0 Digiovanna, 07/12/2018 - Monohyd Macro day for 7 days Amanda, FISHING ROD TRIMMER 07/19/2018 100mg Capsules Gabapentin take one capsules 30caps M54.2 Digiovanna, 05/01/2018 - 100mg by mouth at Amanda, FISHING ROD TRIMMER 07/12/2018 Capsules bedtime, may increase to 2 after 3 days if no improvement Nabumetone 1 by mouth twice a 60tabs M54.5 Digiovanna, 11/06/2017 - 750mg day Amanda, FISHING ROD TRIMMER 05/01/2018 Tablets Benzonatate 1 by mouth every 8 30caps J06.9 Digiovanna, 06/13/2017 - 200mg hours as needed Amanda, FISHING ROD TRIMMER 09/03/2017 Capsules for cough, may cause drowsiness Prednisone 2x/day by mouth 6tabs J06.9 Digiovanna, 06/13/2017 - 20mg Tablets for 3 days Amanda, FISHING ROD TRIMMER 06/16/2017 Ondansetron 1 every 8 hours as 10tabs R07.89 Digiovanna, 04/27/2017 - 4mg Tablets needed for nausea Amanda, FISHING ROD TRIMMER 05/17/2017 Dispers Naproxen Sodium 1 by mouth every 60tabs Digiovanna, 04/27/2017 - 550mg 12 hours for 2 Amanda, FISHING ROD TRIMMER 05/09/2017 Tablets weeks then as needed Ibuprofen 3-4 tabs by mouth Unknown - 200mg three times a day 09/03/2017 Capsules as needed with food or snack for pain Prednisone as directed x 12 Unknown - 10mg Tablets days 05/13/2017 Immunizations CPT Code Status Date Vaccine Reaction Lot # [id number] Refused 07/12/2018 Flu Vaccine NOS Pt says she does not get flu shots. CASA MEYER 07/12/18 [id number] Refused 09/03/2017 Influenza Vac, Quadrivalent, Split, 0.5mL Dosage, Im Use Vital Signs Date Vital Result Comment 12/05/2018 1:01pm Body Temperature 99.1 F Weight 206.00 lb Heart Rate 78 /min BP Systolic 124 mmHg BP Diastolic 78 mmHg Respiratory Rate 18 /min Height 64.75 inches 5'4.75" 07/12/18 [facility] O2 % BldC Oximetry 99 % BMI (Body Mass Index) 34.5 kg/m2 09/17/2018 9:45am Body Temperature 98.3 F Weight 209.00 lb Heart Rate 90 /min Respiratory Rate 18 /min Height 64.75 inches 5'4.75" 07/12/18 [facility] O2 % BldC Oximetry 98 % BMI (Body Mass Index) 35.0 kg/m2 08/14/2018 9:51am Body Temperature 98.2 F Weight 203.00 lb Heart Rate 72 /min BP Systolic 112 mmHg BP Diastolic 70 mmHg Respiratory Rate 18 /min Height 64.75 inches 5'4.75" 07/12/18 [facility] BMI (Body Mass Index) 34.0 kg/m2 07/12/2018 9:57am Weight 179.25 lb Heart Rate 76 /min BP Systolic 114 mmHg BP Diastolic 70 mmHg Respiratory Rate 16 /min Height 64.75 inches 5'4.75" 07/12/18 [facility] BMI (Body Mass Index) 30.1 kg/m2 05/01/2018 [...] Test Result H/L Range Note Laboratory 09/22/19 [facility] Rapid Strep A Negative Negative 1, 2 test finding 19 (315)- - Antigen Laboratory 09/22/19 [facility] Throat Strep NO BETA STREPTOC 3 test finding 19 (315)- - Screen <SEE NOTE> Laboratory 08/14/19 [facility] Urine Culture Microbiology res 4 test finding 19 <SEE NOTE> Affirm 08/14/19 [facility] Trichomonas Negative Negative 19 Vaginalis Gardnerella Vaginalis Negative Negative Meggan Species Negative Negative Laboratory test 07/12/2018 [facility] Urine Culture Microbiology res 5 finding <SEE NOTE> Ua RFX Micro & 07/07/2018 [facility] Urine Color YELLOW Yellow 6 Culture II (315)- - Urine Clarity CLEAR Clear Urine Glucose - Dipstick NEGATIVE mg/dL Negative Urine Bilirubin - Dipstick NEGATIVE Negative Urine Ketone NEGATIVE mg/dL Negative Urine Specific [place] 1.025 N 1.010-1.030 Urine Blood NEGATIVE Negative Urine PH 6.0 Low 6.5-7.5 Urine Protein - Dipstick NEGATIVE mg/dL Negative Urine Urobilinogen - Dipstick 1.0 E.U./dL N 0.2-1.0 Urine Nitrite - Dipstick NEGATIVE Negative Urine Leuk Esterase NEGATIVE Negative Source: URINE, CLEAN CAT <SEE NOTE> 7 Urine HCG 07/07/2018 [facility] Urine HCG NEGATIVE Negative 8 (Qualitative) (315)- - (Qualitative) Source: URINE, CLEAN CAT <SEE NOTE> 9 CBS W/Automated Diff 07/07/2018 [facility] White Blood 7.2 K/uL N 3.1-10.7 (315)- [...] 40.4-72.8 Lymph % 24.4 % N 20.0-42.0 [place] % 6.3 % N 4.3-13.2 Eo% 1.5 % N 0.0-6.6 Bas% 0.3 % N 0.0-1.1 Neut# 4.83 K/uL N 1.8-7.0 Lymph # 1.75 K/uL N 1.0-4.0 [place] # 0.45 K/uL N 0.3-0.9 Eos # 0.11 K/uL N 0.0-0.5 Baso # 0.02 K/uL N 0.0-0.1 Chlmaydia/GC/Trichomonas 07/07/2018 [facility] Chlamydia NEGATIVE Negative PCR (315)- - trachomatis, PCR Neisseria gonorrhoeae, PCR NEGATIVE Negative 10 Trichomonas vaginalis PCR NEGATIVE Negative Affirm Vaginitis 07/07/2018 [facility] Trichomonas Negative [Negative] Panel (315)- - vaginalis Gardnerella vaginalis POSITIVE High [Negative] Meggan species Negative [Negative] 11 Laboratory test 04/04/2018 [facility] Urine Culture Microbiology res 12 finding <SEE NOTE> CBC with Auto 04/04/2018 [facility] WBC 6.3 K/uL 4.1-11.0 Diff-fcmg RBC 4.89 [...] Abs Basophils 0.1 K/uL 0.0-0.3 Comprehensive Met Panel-FCM 04/04/2018 [facility] Sodium 140 mmol/L 135- 146 13 Potassium [...] 10 mmol/L 5-15 17 Urinalysis With 05/10/2017 [facility] Urine Color YELLOW Yellow 18 Microscopic (315)- - Urine Clarity CLEAR Clear Urine Glucose - Dipstick NEGATIVE mg/dL Negative Urine Bilirubin - Dipstick NEGATIVE Negative Urine Ketone NEGATIVE mg/dL Negative Urine Specific [place] 1.010 N 1.010-1.030 Urine Blood NEGATIVE Negative [...] CAT <SEE NOTE> 19 Comprehensive Metabolic 04/25/2017 [facility] Glucose 90 mg/dL N 74-106 [...] U/L N 45-117 Laboratory test finding 04/25/2017 [facility] CK 116 U/L N 26-192 (315)- - Troponin-I < 0.015 ng/mL 23 CBS W/Automated Diff 04/25/2017 [facility] White Blood 7.8 K/uL N 3.1-10.7 (315)- [...] 40.4-72.8 Lymph % 19.3 % Low 20.0-42.0 [place] % 6.1 % N 4.3-13.2 Eo% 0.5 % N 0.0-6.6 Bas% 0.3 % N 0.0-1.1 Neut# 5.78 K/uL N 1.8-7.0 Lymph # 1.51 K/uL N 1.0-4.0 [place] # 0.48 K/uL N 0.3-0.9 Eos # 0.04 K/uL N 0.0-0.5 Baso # 0.02 K/uL N 0.0-0.1 Laboratory test 04/25/2017 [facility] D-Dimer, < 0.22 ug/ mL 24 finding (315)- - Quantitative Urine HCG 11/30/2016 [facility] Urine HCG NEGATIVE Negative 25, 26 (Qualitative) (315)- - (Qualitative) Source: URINE, CLEAN CAT <SEE NOTE> 27 Ua RFX Micro & 11/30/2016 [facility] Urine Color YELLOW Yellow Culture II (315)- - Urine Clarity SL CLOUDY Clear Urine Glucose - Dipstick NEGATIVE mg/dL Negative Urine Bilirubin - Dipstick NEGATIVE Negative Urine Ketone NEGATIVE mg/dL Negative Urine Specific [place] 1.020 N 1.010-1.030 Urine Blood TRACE Negative Urine PH 6.5 N 6.5-7.5 Urine Protein - Dipstick NEGATIVE mg/dL Negative Urine Urobilinogen - Dipstick 0.2 E.U./dL N 0.2-1.0 Urine Nitrite - Dipstick NEGATIVE Negative Urine Leuk Esterase NEGATIVE Negative Source: URINE, CLEAN CAT <SEE NOTE> 28 CBS W/Automated Diff 11/30/2016 [facility] White Blood 9.0 K/uL 3.1-10.7 [...] 40.4-72.8 Lymph % 27.9 % N 20.0-42.0 [place] % 7.6 % N 4.3-13.2 Eo% 0.9 % N 0.0-6.6 Bas% 0.2 % N 0.0-1.1 Neut# 5.69 K/uL N 1.8-7.0 Lymph # 2.50 K/uL N 1.0-4.0 [place] # 0.68 K/uL N 0.3-0.9 Eos # 0.08 K/uL N 0.0-0.5 Baso # 0.02 K/uL N 0.0-0.1 Comprehensive Metabolic 11/30/2016 [facility] Glucose 92 mg/dL N 74-106 [...] 53 U/L N 45-117 Laboratory test 11/30/2016 [facility] Lipase 156 U/L N 73-393 finding (315)- - CBC 11/24/2016 [facility] White Blood 5.3 K/uL N 3.1- 10.7 [...] 10.4 fL N 8.9-12.4 Urinalysis With 11/24/2016 [facility] Urine Color YELLOW Yellow Microscopic (315)- - Urine Clarity CLEAR Clear Urine Glucose - Dipstick NEGATIVE mg/dL Negative Urine Bilirubin - Dipstick NEGATIVE Negative Urine Ketone NEGATIVE mg/dL Negative Urine Specific [place] 1.020 N 1.010-1.030 Urine Blood LARGE Abnormal [...] NOTE> 33 CBC With Auto Diff 10/30/2016 [facility] WBC 6.1 K/uL 4.1-11.0 RBC 4.25 M/uL [...] Basophils 0.0 K/uL 0.0-0.3 Basic (BMP) 10/30/2016 [facility] Sodium 139 mmol/L 135-146 34 Potassium 4.4 mmol/L 3.5-5.2 Chloride# 105 mmol/L 97-110 35 Carbon Dioxide 30 mmol/L 24-34 Glucose 77 mg/dL 70-105 BUN 10 mg/dL 6-26 Creatinine 0.6 mg/dL 0.5-1.4 Calcium 9.0 mg/dL 8.5-10.2 Non Kori Egfr >60 >60 36 Kori Egfr >60 >60 37 Anion Gap 8 mmol/L 7-16 38 Comprehensive Metabolic 08/14/2016 [facility] Glucose 95 mg/dL N 74-106 [...] 58 U/L N 45-117 Laboratory test 08/14/2016 [facility] Lipase 144 U/L N 73-393 finding (315)- - Laboratory test 08/14/2016 [facility] HCG,Serum NEGATIVE N (Negative) finding (315)- - (Qualitative) CBS W/Automated 08/14/2016 [facility] White Blood 7.4 K/ uL N 3.1-10.7 [...] 40.4-72.8 Lymph % 22.7 % N 17.0-46.1 [place] % 5.4 % N 4.3-13.2 Eo% 0.7 % N 0.0-6.6 Bas% 0.3 % N 0.0-1.1 Neut# 5.27 K/uL N 1.8-7.0 Lymph # 1.69 K/uL Low 1.8-7.0 [place] # 0.40 K/uL N 0.3-0.9 Eos # 0.05 K/uL N 0.0-0.5 Baso # 0.02 K/uL N 0.0-0.1 Urinalysis With 08/14/2016 [facility] Urine Color YELLOW N Yellow Microscopic (315)- - Urine Clarity SL CLOUDY N Clear Urine Glucose - Dipstick NEGATIVE mg/dL N Negative Urine Bilirubin - Dipstick NEGATIVE N Negative Urine Ketone TRACE mg/dL High Negative Urine Specific [place] 1.025 N 1.010-1.030 Urine Blood SMALL Abnormal [...] CAT <SEE NOTE> 43 Chlamydia/GC Luisa 08/14/2016 [facility] Chlamydia POSITIVE Abnormal Negative (315)- - Trachomatis, Luisa Neisseria Gonorrhoeae, Luisa Negative N Negative Please note: (SEE NOTE) N 44 [facility] A1c 5.2 % 4.1-5.9 TSH 1.45 uIU/mL 0.35-4.94 Vit D,25 Hydroxy 30 ng/mL Low 31-100 Lipid 05/31/2016 [facility] Cholesterol 165 mg/dL 50-199 Triglycerides 55 mg/dL 30-200 HDL 70 mg/dL 35-85 45 Chol/ HDL Ratio 2.4 ratio Low 3.7-5.6 VLDL 11 mg/dL 2-29 LDL (Calc) 84 mg/dL 20-99 46 Comprehensive Metabolic (CMP) 05/31/2016 [facility] Sodium 137 mmol/L 134- 142 Potassium 3.8 [...] of negative result is in progress Method: Foooooitor Chromatographic immunoassay 3 NO BETA STREPTOCOCCI ISOLATED [...] RECOMMENDED FOR EARLY DETECTION OF . Method: Gainsightidel QuickVue One-Step Immunoassay 9 URINE, CLEAN CATCH [...] DVT, or Pulmonary embolism as clinically indicated. ([facility] has established a 97.89% negative [...] Clinical correlation is suggested. 31 CONSULT 11/20 [id number] 32 POSSIBLE UROGENITAL CONTAMINATION. 33 URINE, CLEAN [...] kidneys. Procedures Date Code Description Status 12/05/2018 48287 Measure Blood Oxygen Level Single Determination Completed 09/17/2018 18554 Measure Blood Oxygen Level Single Determination Completed 07/12/2018 15327 Brief Emotional/Behav Assessment W/ Scoring Doc Per Completed Standard Inst 04/11/2018 90636592 Mammogram Completed 06/13/2017 30825 Measure Blood Oxygen Level Single Determination Completed 11/09/2016 09437 Echography Transvaginal Completed Encounters Type Date Location Provider Dx Diagnosis Office Visit 09/17/2018 [facility] J06.9 Acute upper 9:45a Amanda FISHING ROD TRIMMER respiratory infection, unspecified Office Visit 08/14/2018 [facility] Kandi Victoria PA R30.0 Dysuria 10:00a N76.0 Acute vaginitis Z68.34 Body mass index (BMI) 34.0-34.9, adult Office Visit 07/12/2018 10:00a [facility] Amanda Caba, Z00.00 Encntr for general FISHING ROD TRIMMER adult medical exam w/o abnormal findings M54.2 Cervicalgia M54.5 Low back pain N39.0 Urinary tract infection, site not specified J30.9 Allergic rhinitis, unspecified Z13.31 Encounter for screening for depression Z68.30 Body mass index (BMI) 30.0-30.9, adult Office Visit 05/01/2018 1:00p Amanda Trevizo [employer]ING ROD TRIMMER M54.2 Cervicalgia Office Visit 04/04/2018 11:30a [facility] Kandi Victoria PA N64.4 Mastodynia R82.2 Biliuria M54.5 Low back pain Z68.34 Body mass index (BMI) 34.0-34.9, adult Office Visit 11/06/2017 11:30a [facility] Rosales, T78.40xA Allergy, unspecified, Amanda, FISHING ROD TRIMMER initial encounter M54.5 Low back pain Office Visit 09/03/2017 11:30a [facility] Amanda Caba, S30.0xxA Contusion of lower FISHING ROD TRIMMER back and pelvis, initial encounter Office Visit 06/13/2017 1:45p [facility] Amanda Caba, J06.9 Acute upper [employer]ING [employer]MER respiratory infection, unspecified Office Visit 06/01/2017 11:00a [facility] Amanda Caba, Z00.00 Encntr for general [employer]ING [employer]IMMER adult medical exam w/o abnormal findings R12 Heartburn Z68.33 Body mass index (BMI) 33.0-33.9, adult Office Visit 04/27/2017 9:45a [facility] Amanda Caba, R07.89 Other chest pain [employer]ING [employer]IMMER Office Visit 10/30/2016 2:30p Amanda Trevizo, N92.1 Excessive and frequent [employer]ING [employer]MER menstruation with irregular cycle Office Visit 05/31/2016 1:45p [facility] Amanda Caba, Z00.00 Encntr for general FISHING [employer]IMMER adult medical exam w/o abnormal findings Z68.29 Body mass index (BMI) 29.0-29.9, adult J06.9 Acute upper respiratory infection, unspecified R10.9 Unspecified abdominal pain Plan of Treatment Future Appointment(s):07/14/2019 10:00 am - Amanda Caba, FISHING ROD TRIMMER at [facility]12/05 - Kandi Victoria, PAJ20.9 Acute bronchitis, unspecifiedNew Medication: Azithromycin 250 mg - 2 tablets by mouth on day 1 then 1 tablet on days 2- 5Prednisone 10 mg - 4 tablets by mouth x 2 days, then 3 tablets x 2 days, then 2 tablets x 2 days, then 1 tablet until finishedComments:Most likely cause is virus that won't respond to ABX Given story, may have bacterial componentThe zithromax will help to kill any bacteria, but the cold symptoms, congestion, cough may not improve andwill have to run it's courseCall for increased Shortness of breath, temp >=101, wheeze, any new concerns or symptoms.Follow up:PrnZ68.34 Body mass index (BMI) 34.0-34.9, adult
[2019-01-03 16:56] VITALS: BP 120/70
--- NOTE | 2019-01-03 17:06 | UC ---
Respiratory Complaint HPI - HPI Summary HPI Summary: Per boilermaker's assistant: "Onset this morning scratchy throat, cough, wheezy, feeling feverish, hx of asthma." -here w/ her dtr who is being seen for ST and wheezing. dtr has mild asthma. + asthma. she has been on predniisone 4 x in recent [facility] for asthma. she is currently on flovent 110mcg 2 p BID and awaiting asthma specialsit appt she has scheduled for 01/29/19 as new pt. -feels feverish today but no t documented. no sinus pain. no ST -flovent is very helpful to clear her sx. - History of Current Complaint Chief Complaint: UCGeneralIllness Stated Complaint: COUGH,ST FEVER Time Seen by Provider: 01/03/19 17:03 Hx Last Menstrual Period: ablation Pain Intensity: 8 - Allergies/Home Medications Allergies/Adverse Reactions: Allergies Allergy/AdvReac Type Severity Reaction Status Date / Time tramadol AdvReac Tachycardia Verified 01/03/19 16:52 Home Medications: Home Medications Albuterol HFA INHALER* [Ventolin HFA Inhaler*] 2 puff INH Q4H PRN 01/03/19 [ History Confirmed 01/03/19] Omeprazole 20 mg PO BEDTIME 01/03/19 [History Confirmed 01/03/19] PMH/Surg Hx/FS Hx/Imm Hx Previously Healthy: Yes Respiratory History: Asthma - Surgical History Surgical History: Yes Surgery Procedure, Year, and Place: Right Inguinal Hernia Repair, 2003, [facility]. Tubal Ligation, 2008, [facility]. , 2005 2006 2008, [facility]. appy. Ablation - Family History Known Family History: Positive: Hypertension, Respiratory Disease - asthma - Social History Alcohol Use: Rare Substance Use Type: None Smoking Status (MU): Never Smoked Tobacco Review of Systems All Other Systems Reviewed And Are Negative: Yes Constitutional: Positive: Fever - feverish Skin: Negative: Negative Eyes: Positive: Negative ENT: Positive: Negative Respiratory: Positive: Cough. Negative: Shortness Of Breath Cardiovascular: Positive: Negative Gastrointestinal: Positive: Negative Genitourinary: Positive: Negative Motor: Positive: Negative Neurovascular: Positive: Negative Musculoskeletal: Positive: Negative Neurological: Positive: Negative Psychological: Positive: Negative Is Patient Immunocompromised?: No Physical Exam Triage Information Reviewed: Yes Appearance: Well-Appearing, No Pain Distress, Well-Nourished - very pleasant, reliable historian Vital Signs: Initial Vital Signs Temp 97.7 F 01/03/19 16:53 Pulse 81 01/03/19 16:53 Resp 18 01/03/19 16:53 BP 120/70 01/03/19 16:53 Pulse Ox 100 01/03/19 16:53 Eye Exam: Normal ENT Exam: Normal ENT: Positive: Pharynx normal, TMs normal, Uvula midline. Negative: Pharyngeal erythema, Sinus tenderness Neck exam: Normal Neck: Positive: Supple, Nontender, No Lymphadenopathy Respiratory Exam: Normal Respiratory: Positive: Lungs clear, Normal breath sounds, No respiratory distress, Decreased breath sounds - mildly decreased b/l. apices nml. Negative : Crackles, Rhonchi, Stridor, Wheezing Cardiovascular Exam: Normal Cardiovascular: Positive: RRR, No Murmur, Pulses Normal Abdominal Exam: Normal Abdomen Description: Positive: Nontender, Soft Bowel Sounds: Positive: Present Musculoskeletal Exam: Normal Neurological Exam: Normal Neurological: Positive: Fatigued Skin Exam: Normal Respiratory Course/Dx - Course Course Of Treatment: Asthmatic bronchitis. She has had 4 recent prescriptions ofr prednisone and discussed the benefit of avoiding if possible. She has no wheezing and she gets relief after using flovent. note black box of flovent used alone. -will change to symbicort as she is requiring more aggressive management of uncontrolled asthma needing 4 rounds of recent prednisone -symbicort 160mcg 2 p BID. STOP flovent. rinse mouth -hopefully insurance will cover it, if not, she can call her PCP on Sunday for other covered options -go to ER w/ worsening sx/ - Differential Dx/Diagnosis Differential Diagnosis/HQI/PQRI: Asthma, Bronchitis, Laryngitis, Sinusitis Provider Diagnosis: Asthma attack Discharge - Sign-Out/Discharge Documenting (check all that apply): Patient Departure All imaging exams completed and their final reports reviewed: No Studies - Discharge Plan Condition: Stable Disposition: HOME Prescriptions: Budesonide/Formote 160/4.5(NF) [Symbicort 160/4.5 (NF)] 2 puff INH BID #1 mdi Patient Education Materials: Acute Bronchitis (ED), Wheezing (ED) Referrals: Amanda Caba [Primary Care Provider] - Additional Instructions: STOP the FLOVENT. START SYMBICORT. rinse your mouth out after every use. -go to ER if symptoms worsen -follow up w/ pcp this week. - Billing Disposition and Condition Condition: STABLE Disposition: Home
== END 2019-01-03 17:42 | disposition home or self-care (01) ==
LOC: UCCORT 16:09
DX: J45.909 Unspecified asthma, uncomplicated (principal); Z88.5 Allergy status to narcotic agent
CPT/HCPCS: 99212; G0463

== ENCOUNTER 2019-01-09 10:05 | Emergency (ER) | payer OTHER ==
[2019-01-09 10:25] VITALS: BP 107/70
--- NOTE | 2019-01-09 10:56 | UC ---
Skin Complaint HPI - HPI Summary HPI Summary: 33-year-old female comes in with a chief complaint of facial laceration. Patient has a mole just under her lip which she accidentally cut this morning. She is applied direct pressure and she's been having a hard time stopping the bleeding. Is not bleeding now. Patient has had the mole her whole life. No changes in the mole noted. - History of Current Complaint Chief Complaint: UCSkin Time Seen by Provider: 01/09/19 10:46 Stated Complaint: SKIN COMPLAINT Hx Last Menstrual Period: ablation Pain Intensity: 6 - Allergy/Home Medications Allergies/Adverse Reactions: Allergies Allergy/AdvReac Type Severity Reaction Status Date / Time tramadol AdvReac Tachycardia Verified 01/09/19 10:25 PMH/Surg Hx/FS Hx/Imm Hx Previously Healthy: Yes GI/ History: Gastroesophageal Reflux - Surgical History Surgical History: Yes Surgery Procedure, Year, and Place: Right Inguinal Hernia Repair, 2003, [facility]. Tubal Ligation, 2008, [facility]. , 2005 2006 2008, [facility]. app[facility]. Ablation - Family History Known Family History: Positive: Hypertension, Respiratory Disease - asthma - Social History Alcohol Use: Rare Substance Use Type: None Smoking Status (MU): Never Smoked Tobacco Review of Systems All Other Systems Reviewed And Are Negative: Yes Constitutional: Positive: Negative Skin: Positive: Other - SEE HPI Eyes: Positive: Negative ENT: Positive: Negative Respiratory: Positive: Negative Cardiovascular: Positive: Negative Gastrointestinal: Positive: Negative Motor: Positive: Negative Neurovascular: Positive: Negative Musculoskeletal: Positive: Negative Neurological: Positive: Negative Psychological: Positive: Negative Is Patient Immunocompromised?: No Physical Exam Triage Information Reviewed: Yes Appearance: Well-Appearing, No Pain Distress, Well-Nourished Vital Signs: Initial Vital Signs Temp 98.6 F 01/09/19 10:21 Pulse 69 01/09/19 10:21 Resp 18 01/09/19 10:21 BP 107/70 01/09/19 10:21 Pulse Ox 100 01/09/19 10:21 Vital Signs Reviewed: Yes Eye Exam: Normal Eyes: Positive: Conjunctiva Clear Neck: Positive: Supple Respiratory: Positive: No respiratory distress Cardiovascular: Positive: RRR Musculoskeletal Exam: Normal Musculoskeletal: Positive: Strength Intact, ROM Intact Neurological Exam: Normal Neurological: Positive: Alert, Muscle Tone Normal Psychological Exam: Normal Psychological: Positive: Age Appropriate Behavior Skin: Positive: Other - 1CM BELOW LOWER LIP 3MM RAISED MOLE WITH A 1MM PUNCTATE AREA WITH A SCAB. I APPLIED GLUE OVER THE AREA, NO FURTHER BLEEDING. Laceration Repair - Laceration Repair 1 Procedure Summary: PUNCTATE 1MM IN MOLE ON FACE 1CM BELOW LOWER LIP Closure Material: Skin Adhesive Course/Dx - Diagnoses Provider Diagnosis: Superficial laceration of face Discharge - Sign-Out/Discharge Documenting (check all that apply): Patient Departure All imaging exams completed and their final reports reviewed: No Studies - Discharge Plan Condition: Stable Disposition: HOME Patient Education Materials: Skin Adhesive Care (ED), Facial Laceration (ED) Referrals: Amanda Caba [Primary Care Provider] - Alex Trinidad MD [Medical Doctor] - Kenji Emanuel MD [Medical Doctor] - Additional Instructions: FOLLOW UP WITH YOUR DOCTOR IF NOT COMPLETELY IMPROVED. FOLLOW UP WITH PLASTIC SURGERY IF YOU WISH TO HAVE THE MOLE REMOVED. GET RECHECKED SOONER IF YOUR CONDITION WORSENS OR ANY QUESTIONS OR CONCERNS. - Billing Disposition and Condition Condition: STABLE Disposition: Home
== END 2019-01-09 11:04 | disposition home or self-care (01) ==
LOC: UCEAST 10:05
DX: S01.81XA Laceration without foreign body of other part of head, initial encounter (principal); Z88.5 Allergy status to narcotic agent; X58.XXXA Exposure to other specified factors, initial encounter; Y92.9 Unspecified place or not applicable
CPT/HCPCS: 12001; 99211; G0463